=== PATIENT | female | born 1990 | race African-American/Black ===

== ENCOUNTER 2016-11-30 19:37 | Emergency (ER) | payer OTHER ==
[~2016-11-30] VITALS: Ht 160 cm; Wt 114.0 kg
[~2016-11-30 19:37] MED LIST: FAMO-18 PO
[2016-11-30 20:08] VITALS: Ht 160 cm; Wt 114.0 kg
[2016-11-30] MEDS ORDERED: AMOX1TAB10 PO (20:57)
[2016-11-30] MEDS ORDERED: IBUPROFEN 600 MG TAB PO ONE (21:00)
--- NOTE | 2016-11-30 22:11 | ERD ---
ER Documentation Chief Complaint Date/Time DATE: 11/30/16 TIME: 22:[address] since this morning HPI This pleasant 26-year-old diabetic female presenting with 24 hours of sore throat. Patient reports fever, chills, body aches, states that she feels like she has a golf ball in the back of her throat. She is able to swallow her own saliva, she is having no difficulty speaking. Patient states that she is around no small children, but she does go to the gym and ride public transportation. patient denies nausea vomiting, or antibiotic use in the last 3 months. ROS All systems reviewed and are negative except as per history of present illness. Medications Home Meds Active Scripts Amoxicillin/Potassium Clav (Amox-Clav 875-125 mg Tablet) 875-125 mg Tab, 1 TAB PO BID for 10 Days, #20 TAB Prov:GLEN,MELODY 11/30/16 Famotidine* (Pepcid*) 20 Mg Tablet, 20 MG PO BID for 4 Days, #30 TAB Prov:ELIECER MAYORGA PA-C 07/21/16 Allergies Allergies: Coded Allergies: No Known Allergy (Unverified , 07/21/16) PMhx/Soc History of Surgery: No Anesthesia Reaction: No Hx Neurological Disorder: No Hx Respiratory Disorders: No Hx Cardiac Disorders: No Hx Psychiatric Problems: No Hx Miscellaneous Medical Probl: No Hx Alcohol Use: No Hx Substance Use: No Hx Tobacco Use: No Physical Exam Vitals Vital Signs Date Time Temp Pulse Resp B/P Pulse Ox O2 Delivery O2 Flow Rate FiO2 11/30/16 22:19 99.0 11/30/16 20:08 98.0 97 20 144/72 97 Vital stable, nursing notes reviewed Physical Exam Const: No acute distress Head: Atraumatic Eyes: Normal Conjunctiva, PERRLA, EOMI ENT: Panic membranes are erythemic, nonbulging, auditory canals are clear, nasal mucosa is moist, clear mucus noted terminates +2, no maxillary or frontal sinus tenderness, pharynx is pink, moist, tonsils +2 with exudate noted tonsillar pillars, and posterior pharynx, uvula rises and falls with pronation Neck: Full range of motion..~ No meningismus. No cervical chain nodes palpable Resp: Chest rise and fall symmetrically, clear to auscultation bilaterally no rales wheezes or rhonchi Cardio: Regular rate and rhythm, no murmurs Abd: Soft, non tender, non distended. No hepatosplenomegaly Skin: No petechiae or rashes Back: Ext: Neur: Awake and alert Psych: Normal Mood and Affect Results 24 hrs Current Medications Medications (Trade) Dose Ordered Sig/Fransisco Route PRN Reason Start Time Stop Time Status Last Admin Dose Admin Ibuprofen (Motrin) 600 mg ONCE ONCE PO 11/30/16 21:00 11/30/16 21:01 DC 11/30/16 21:03 Procedures/MDM Pleasant 26-year-old diabetic female presents to emergency department with sore throat for less than 24 hours. Physical exam findings consistent with strep pharyngitis. Patient's voice is clear, and tonsillar abscess is not suspected. Patient will be treated with Augmentin, I feel the patient is stable for discharge at this time. I have discussed results, examination findings, the treatment plan with the patient and family present prior to discharge. Indications for emergent reevaluation, side effects of medication were also discussed. All questions were answered. Patient verbalizes understanding and agrees with plan of care. Departure Diagnosis: Primary Impression: Acute tonsillitis Pharyngitis/tonsillitis etiology: unspecified etiology Qualified Code: J03.90 - Acute tonsillitis, unspecified etiology Condition: Good Patient Instructions: Pharyngitis, Strep (Presumed) Additional Instructions: Thank you for for coming to [facility] for your care today. Please ask your nurse or provider if you have questions about your care today and do not leave until all your questions have been answered. Please use any medications given as directed and follow-up with your doctor (or the doctor you were referred to) in the next 2-3 days. If you do not have a primary care doctor you may follow up at the [facility] (listed below). You may also use motrin and tylenol as needed for fever and/or pain unless instructed otherwise by your provider or nurse. Indications for more urgent follow-up have been discussed, but you may return to the Emergency Department at ANY time for any worrisome or worsening symptoms. If you have abdominal pain, please know that no test or exam you received is perfect and you should follow up within 8 hours for continued pain. If you had any imaging studies today, such as an X-Ray or CT Scan, these studies will be reviewed later by a radiologist. You will be called if there are important findings that were not identified today, so make sure the contact information you provided at registration is correct. If you received any narcotic pain control medicine today, such as Vicodin, Morphine or Dilaudid, your coordination and judgment may be affected for a number of hours. Please do not drive or operate heavy machinery, and you may want someone to assist you at home. If you were given a prescription for narcotic medication, be aware that it is very addictive- use sparingly and only if necessary. ENRIQUE CARROLL Nov 30, 2016 22:11
[2016-11-30 22:19] VITALS: TEMP 99
== END 2016-11-30 22:19 | disposition home or self-care (01) ==
LOC: FTE 19:37
DX: J03.90 Acute tonsillitis, unspecified (principal); E03.9 Hypothyroidism, unspecified; E11.9 Type 2 diabetes mellitus without complications
CPT/HCPCS: 99283

== ENCOUNTER 2017-03-27 08:37 | Emergency (ER) | payer OTHER ==
[~2017-03-27] VITALS: Ht 162.6 cm; Wt 116.0 kg
[~2017-03-27 08:37] MED LIST changes: +AMOX1TAB10 PO; -FAMO-18 PO; +FAMO-96 PO
[2017-03-27 08:42] VITALS: Ht 162.6 cm; Wt 116.0 kg
[2017-03-27] MEDS ORDERED: ONDANSETRON (ODT) 4 MG TAB ODT STA (09:11)
[2017-03-27] MEDS ORDERED: FAMOTIDINE 20 MG TAB PO STA (09:11)
[2017-03-27 09:35] LABS: URINE BLOOD (Dip) POC 1+ (NEGATIVE)
[2017-03-27 09:51] LABS: BASOPHIL # 0.1 10^3/ul (0.0-0.1); BASOPHILS % 1.2 % (0.0-2.0); EOSINOPHILS # 0.1 10^3/ul (0.0-0.5); HEMATOCRIT 38.4 % (37.0-47.0); HEMOGLOBIN 12.5 g/dl (12.0-16.0); LYMPHOCYTES # 2.5 10^3/ul (0.8-2.9); MEAN CORPUSCULAR HEMOGLOBIN 26.8 pg (29.0-33.0); MEAN CORPUSCULAR HGB CONC 32.6 g/dl (32.0-37.0); MEAN CORPUSCULAR VOLUME 82.4 fl (82.0-101.0); MEAN PLATELET VOLUME 9.3 fl (7.4-10.4); MONOCYTE # 0.8 10^3/ul (0.3-0.9); NEUTROPHIL # 1.4 10^3/ul (1.6-7.5); PLATELET COUNT 351 10^3/UL (140-415); RED BLOOD COUNT 4.66 10^6/ul (4.20-5.40); RED CELL DISTRIBUTION WIDTH 13.6 % (11.5-14.5); WHITE BLOOD COUNT 4.9 10^3/ul (4.8-10.8)
[2017-03-27 09:57] LABS: MONOCYTES % 16.6 % (0.0-11.0); POSITIVE DIFF @See below
[2017-03-27 10:11] LABS: ALBUMIN 4.4 g/dl (3.3-4.9); ALBUMIN/GLOBULIN RATIO 0.93; BILIRUBIN,INDIRECT 0.1 mg/dl (0-1.1); BILIRUBIN,TOTAL 0.1 mg/dl (0.2-1.3); CALCIUM 10.1 mg/dl (8.4-10.2); CREATININE 0.75 mg/dl (0.44-1.00); POTASSIUM 4.1 mmol/L (3.5-5.1); TOTAL PROTEIN 9.1 g/dl (6.1-8.1)
--- NOTE | 2017-03-27 10:29 | RADRPT ---
PROCEDURE: US Pelvis. CLINICAL INDICATION: pelvic pain TECHNIQUE: Multiple sonographic images of the pelvis were obtained utilizing a transabdominal and endovaginal technique. The images were reviewed on a PACS workstation. COMPARISON: None. FINDINGS: The uterus is normal in size with a normal appearance of the myometrium. The uterus measures 8.5 x 4.0 x 4.3 cm. The endometrial stripe is homogeneous in appearance and has the thickness of 5 mm. The right ovary was not seen. The left ovary measures 1.4 x 0.8 x 1.1 cm. Trace free fluid is present within the pelvis. RPTAT: AA IMPRESSION: Unremarkable pelvic ultrasound. Right ovary not visualized. .Cruzito Galvan MD, MD Date Time Electronically viewed and signed by .Cruzito Galvan MD, MD on 03/27/2017 10:29 .S/
--- NOTE | 2017-03-27 10:30 | ERD ---
ER Documentation Chief Complaint Date/Time DATE: 03/27/17 TIME: 10:25 Chief Complaint right lower abdominal pain, lower back pain and nausea x 2 weeks HPI This is a 26-year-old female, with past medical history for diabetes mellitus type 2, hypercholesterolemia and hypertension, presenting to emergency department with right lower quadrant abdominal pain and right lower back pain with nausea 2 weeks. Patient states she will develop sharp right lower quadrant abdominal pain that radiates to right lower back and pain lasts for about 10-15 minutes per day. Patient states pain resolves on its own. Patient did take Tylenol once with some relief of pain. Patient also has nausea with some acid reflux. Denies dysuria, hematuria, urinary frequency or urinary urgency. No fevers or chills. Last menstrual period April 2016 and patient states she is on medication Cyclafem. Patient states she was told to continue this medication daily so that she would not have a menstrual period. ROS All systems reviewed and are negative except as per history of present illness. Medications Home Meds Active Scripts Docusate Sodium* (Colace*) 100 Mg Capsule, 100 MG PO DAILY, #15 CAP Prov:KASSI RED NP 03/27/17 Polyethylene Glycol* (Miralax*) 17 Gm Powd.pack, 17 GM PO DAILY, #7 Prov:KASSI RED NP 03/27/17 Amoxicillin/Potassium Clav (Amox-Clav 875-125 mg Tablet) 875-125 mg Tab, 1 TAB PO BID for 10 Days, #20 TAB Prov:GLENENRIQUE 11/30/16 Famotidine* (Pepcid*) 20 Mg Tablet, 20 MG PO BID for 4 Days, #30 TAB Prov:ELIECER MAYORGA PA-C 07/21/16 Allergies Allergies: Coded Allergies: benazepril (Verified Allergy, Intermediate, 03/27/17) PMhx/Soc Diabetes mellitus type 2 Hypertension Hypercholesterolemia History of Surgery: No Anesthesia Reaction: No Hx Neurological Disorder: No Hx Respiratory Disorders: No Hx Psychiatric Problems: No Hx Miscellaneous Medical Probl: Yes Hx Alcohol Use: No Hx Substance Use: No Hx Tobacco Use: No Smoking Status: Never smoker Physical Exam Vitals Vital Signs Date Time Temp Pulse Resp B/P Pulse Ox O2 Delivery O2 Flow Rate FiO2 03/27/17 08:42 98.3 114 18 139/106 98 Physical Exam Const: Alert, [id number] Head: Atraumatic Eyes: Normal Conjunctiva ENT: Normal External Ears, Nose and Mouth. Neck: Full range of motion..~ No meningismus. Resp: Clear to auscultation bilaterally. No wheezing, rhonchi or crackles per Cardio: Regular rate and rhythm, no murmurs Abd: Soft, non distended. Normal bowel sounds, mild tenderness right lower quadrant. No rebound tenderness. Negative Devlin sign Skin: No petechiae or rashes Back: No midline or flank tenderness Ext: No cyanosis, or edema Neur: Awake and alert Psych: Normal Mood and Affect Result Diagram: 03/27/1793303/27/1734 Results 24 hrs Laboratory Tests Test 03/27/17 09:34 03/27/17 09:40 White Blood Count 4.910^3/ul Red Blood Count 4.6610^6/ul Hemoglobin 12.5g/dl Hematocrit 38.4% Mean Corpuscular Volume 82.4fl Mean Corpuscular Hemoglobin 26.8pg Mean Corpuscular Hemoglobin Concent 32.6g/dl Red Cell Distribution Width 13.6% Platelet Count 18761^3/UL Mean Platelet Volume 9.3fl Neutrophils % 29.0% Lymphocytes % 51.0% Monocytes % 16.6% Eosinophils % 2.0% Basophils % 1.2% Nucleated Red Blood Cells % 0.0/100WBC Neutrophils # 1.410^3/ul Lymphocytes # 2.510^3/ul Monocytes # 0.810^3/ul Eosinophils # 0.110^3/ul Basophils # 0.110^3/ul Nucleated Red Blood Cells # 0.010^3/ul Sodium Level 142mmol/L Potassium Level 4.1mmol/L Chloride Level 99mmol/L Carbon Dioxide Level 24mmol/L Anion Gap 23 Blood Urea Nitrogen 9mg/dl Creatinine 0.75mg/dl Glucose Level 143mg/dl Calcium Level 10.1mg/dl Total Bilirubin 0.1mg/dl Direct Bilirubin 0.00mg/dl Indirect Bilirubin 0.1mg/dl Aspartate Amino Transf (AST/SGOT) 14IU/L Alanine Aminotransferase (ALT/SGPT) 17IU/L Alkaline Phosphatase 85IU/L Total Protein 9.1g/dl Albumin 4.4g/dl Globulin 4.70g/dl Albumin/Globulin Ratio 0.93 Lipase 63U/L Bedside Urine pH (LAB) 6.0 Bedside Urine Protein (LAB) 1+ Bedside Urine Glucose (UA) Negative Bedside Urine Ketones (LAB) Negative Bedside Urine Blood 1+ Bedside Urine Nitrite (LAB) Negative Bedside Urine Leukocyte Esterase (L Negative Current Medications Medications (Trade) Dose Ordered Sig/Fransisco Route PRN Reason Start Time Stop Time Status Last Admin Dose Admin Famotidine (Pepcid) 20 mg ONCE STAT PO 03/27/17 09:11 03/27/17 09:13 DC 03/27/17 09:28 Ondansetron HCl (Zofran Odt) 4 mg ONCE STAT ODT 03/27/17 09:11 03/27/17 09:13 DC 03/27/17 09:28 Procedures/MDM [place] [address] Radiology Main Line: [phone] DIAGNOSTIC IMAGING REPORT Patient: CHAYITO SAGASTUME : 1990 Age: 26 Sex: F MR #: [id number] DOS: 03/27/17 0911 Ordering MD: KASSI RED NP Location: [facility] Room/Bed: PROCEDURE: US Pelvis. CLINICAL INDICATION: pelvic pain TECHNIQUE: Multiple sonographic images of the pelvis were obtained utilizing a transabdominal and endovaginal technique. The images were reviewed on a PACS workstation. COMPARISON: None. FINDINGS: The uterus is normal in size with a normal appearance of the myometrium. The uterus measures 8.5 x 4.0 x 4.3 cm. The endometrial stripe is homogeneous in appearance and has the thickness of 5 mm. The right ovary was not seen. The left ovary measures 1.4 x 0.8 x 1.1 cm. Trace free fluid is present within the pelvis. RPTAT: AA IMPRESSION: Unremarkable pelvic ultrasound. Right ovary not visualized. [place] [address] Radiology Main Line: [phone] DIAGNOSTIC IMAGING REPORT Patient: CHAYITO SAGASTUME : 1990 Age: 26 Sex: F MR #: [id number] DOS: 03/27/17 0911 Ordering MD: KASSI RED NP Location: [facility] Room/Bed: PROCEDURE: CT abdomen and pelvis without contrast and with 3-D reconstructions CLINICAL INDICATION: Abdominal Pain, nausea, constipation, frequent urination TECHNIQUE: CT scan of the abdomen and pelvis without contrast was performed on a multislice CT scanner. 3-D sagittal and coronal reformatted images were obtained from the axial source images. DLP 1440.23 mGycm CTDIvol 22.91 mGy One or more of the following dose reduction techniques were used: - Automated exposure control. - Adjustment of the mA and/or kV according to patient size. - Use of iterative reconstruction technique. COMPARISON: None. FINDINGS: The visualized lung bases are unremarkable. The liver is homogenous in attenuation. There are no focal liver lesions. There is no intrahepatic or extrahepatic biliary ductal dilatation. The gallbladder is within normal limits. The spleen, pancreas, and adrenal glands are within normal limits. The kidneys are symmetric and without focal lesions. There are no renal calculi. There is no obstructive uropathy. There are no dilated or thickened loops of bowel. The appendix is within normal limits. A zlqrwcso-wr-ykhcr amount of stool is noted in the cecum which is located in the posterior aspect of the pelvis. The aorta is within normal limits. There are no enlarged mesenteric, periaortic , or retroperitoneal lymph nodes. The bladder is within normal limits. There is no free air. There is no free fluid. There are no enlarged intrapelvic or inguinal lymph nodes. Osseous and soft tissue structures are unremarkable. IMPRESSION: Unremarkable CT scan of the abdomen and pelvis. The appendix is within normal limits. No renal/ureteral calculi or hydronephrosis. No evidence of a bowel obstruction. A jopekwsp-vg-kfsgr amount of stool is noted in the cecum which is located in the posterior aspect of the pelvis. The clinical significance of this finding is unclear and may be related to the reported constipation. Clinical correlation is recommended. MDM: This is a 26-year-old female presenting to emergency department with history of sharp right lower quadrant abdominal pain that radiates to right lower back and nausea for the past 2 weeks. Patient denies vomiting however states she has acid reflux. No dysuria, hematuria, urinary frequency or urinary urgency. Patient states she is currently nauseous. No active vomiting in the ED. Patient given Pepcid and Zofran p.o. Labs are unremarkable. No significant anemia, infection or electrolyte imbalance. Urine dip is negative for infection. Urine is negative. US pelvis reviewed by radiologist as normal. CT abdomen and pelvis reviewed by radiologist as moderate to large amount of stool noted in cecum. Appendix normal. No renal/ureteral calculi or hydronephrosis. No evidence of bowel obstruction. Differential diagnosis includes but not limited to acute appendicitis, diverticulitis, diverticulosis, bowel obstruction, constipation, infectious colitis, irritable bowel syndrome, inflammatory bowel disease, viral gastroenteritis, abdominal aortic aneurysm, food intolerance, celiac disease, UTI, pyelonephritis, nephrolithiasis, acute urinary retention or colorectal cancer. I doubt any emergent conditions such as appendicitis, diverticulitis, bowel obstruction, abdominal aortic aneurysm at this time due to normal vital signs and normal lab results. Patient is appropriate for outpatient management. Patient given prescriptions for miralax and Colace. Instructed patient to follow-up with primary care provider in the next 2-3 days for reassessment and additional management. Return to ED for any high fever, chest pain, difficulty breathing, shortness breath, wheezing, vomiting, diarrhea, abdominal pain or any new or worsening symptoms. Patient verbalizes understanding. All questions answered at discharge. Departure Diagnosis: Primary Impression: Abdominal pain Abdominal location: right lower quadrant Qualified Code: R10.31 - Right lower quadrant abdominal pain Additional Impression: Constipation Constipation type: unspecified constipation type Qualified Code: K59.00 - Constipation, unspecified constipation type Condition: KASSI Gates NP Mar 27, 2017 10:30
--- NOTE | 2017-03-27 10:37 | RADRPT ---
PROCEDURE: CT abdomen and pelvis without contrast and with 3-D reconstructions CLINICAL INDICATION: Abdominal Pain, nausea, constipation, frequent urination TECHNIQUE: CT scan of the abdomen and pelvis without contrast was performed on a multislice CT [facility]. 3-D sagittal and coronal reformatted images were obtained from the axial source images. DLP 1440.23 mGycm CTDIvol 22.91 mGy One or more of the following dose reduction techniques were used: - Automated exposure control. - Adjustment of the mA and/or kV according to patient size. - Use of iterative reconstruction technique. COMPARISON: None. FINDINGS: The visualized lung bases are unremarkable. The liver is homogenous in attenuation. There are no focal liver lesions. There is no intrahepatic or extrahepatic biliary ductal dilatation. The gallbladder is within normal limits. The spleen, pancreas, and adrenal glands are within normal limits. The kidneys are symmetric and without focal lesions. There are no renal calculi. There is no obstruc tive uropathy. There are no dilated or thickened loops of bowel. The appendix is within normal limits. A moderate-t o-large amount of stool is noted in the cecum which is located in the posterior aspect of the pelvis . The aorta is within normal limits. There are no enlarged mesenteric, periaortic, or retroperitoneal lymph nodes. The bladder is within normal limits. There is no free air. There is no free fluid. There are no enlarged intrapelvic or inguinal lymph nodes. Osseous and soft tissue structures are unremarkable. IMPRESSION: Unremarkable CT scan of the abdomen and pelvis. The appendix is within normal limits. No renal/ureteral calculi or hydronephrosis. No evidence of a bowel obstruction. A krjhhgsg-dd-ufhxw amount of stool is noted in the cecum which is located in the posterior aspect o f the pelvis. The clinical significance of this finding is unclear and may be related to the reporte d constipation. Clinical correlation is recommended. RPTAT: EE Physician Husam Date Time Electronically viewed and signed by Gorge Potter Physician on 03/27/2017 10:36 /
[2017-03-27] MEDS ORDERED: DOCU-144 PO (10:44)
[2017-03-27] MEDS ORDERED: POLY17PO6 PO (10:44)
[2017-03-31 16:11] LABS: URINE BLOOD (Dip) POC 1+ (NEGATIVE)
== END 2017-03-27 10:57 | disposition home or self-care (01) ==
LOC: FTE 08:37
DX: R10.31 Right lower quadrant pain (principal); K59.00 Constipation, unspecified; E11.9 Type 2 diabetes mellitus without complications; R11.0 Nausea; I10 Essential (primary) hypertension; R10.2 Pelvic and perineal pain
CPT/HCPCS: 36415; 74176; 76830; 76856; 80053; 81003; 83690; 85025; Z7502

== ENCOUNTER 2017-12-24 20:55 | Emergency (ER) | END 2017-12-25 01:00 | disposition left against medical advice (07) ==

== ENCOUNTER 2017-12-31 16:56 | Emergency (ER) | END 2017-12-31 19:27 | disposition home or self-care (01) ==

== ENCOUNTER 2018-03-31 16:24 | Emergency (ER) | END 2018-03-31 19:00 | disposition home or self-care (01) ==

== ENCOUNTER → 2018-11-01 | Emergency (ER) | payer OTHER ==
[~2018-11-01] VITALS: Ht 162.6 cm; Wt 110.0 kg
[~2018-11-01] MED LIST changes: +ACET500C5 PO; -AMOX1TAB10 PO; +ATOR10TA65 PO; +BEN50 PO; -FAMO-96 PO; +FLUCONAZOLE 150 MG TAB PO ONE; +HYDR-4011 PO; +IBUP800T48 PO; +LAMO25TA PO; +LOSA50TA14 PO; +LURA20TA PO; +METF500T24 PO; +NAPR-985 PO; +NYST1000 PO
[2018-11-01 08:13] VITALS: BP 163/72; PULSE 84; RESP 16; Ht 162.6 cm; Wt 110.0 kg
--- NOTE | 2018-11-01 10:47 | ERD ---
ER Documentation Chief Complaint Chief Complaint pt bib self with c/o sore throat since Sunday, white spots HPI 28-year-old female presenting with sore throat times 5 days. She noted some white spots on her throat. She was seen at urgent care and had a strep swab performed which was negative but given antibiotics. Symptoms have not resolved. Patient has no fevers. Denies runny nose and denies cough. Has some mild ear congestion. Medical history of diabetes type 2. Checked his sugar yesterday was 180. Patient is on pills but no insulin. Patient's allergy to benazepril. Surgical history denies. Social history smokes marijuana occasionally ROS All systems reviewed and are negative except as per history of present illness. Medications Home Meds Active Scripts Nystatin (Nystatin) 100,000 Unit/1 Ml Oral.susp, 5 ML PO QID for 14 Days, OZ Swish and swallow Prov:NATHANAEL ZHU PA-C 11/01/18 Naproxen* (Naprosyn*) 500 Mg Tablet, 500 MG PO BID PRN for PAIN AND/OR INFLAMMATION, #30 TAB Prov:KIERSTEN XIONG PA-C 03/31/18 Hydrocodone/Acetaminophen ([place] 5-325 Tablet) 1 Each Tablet, 1 TAB PO Q6H PRN for PAIN, #5 TAB Prov:KIERSTEN XIONG PA-C 03/31/18 Acetaminophen* (Tylophen*) 500 Mg Capsule, 1 CAP PO Q6H PRN for PAIN AND OR ELEVATED TEMP, #20 CAP Prov:NIMCO MARY F 12/31/17 Ibuprofen* (Motrin*) 800 Mg Tab, 800 MG PO Q6H PRN for PAIN AND OR ELEVATED TEMP, #20 TAB Prov:PASILARAFA BARBAAR F 12/31/17 Reported Medications Diphenhydramine Hcl* (Benadryl*) 50 Mg Cap, 50 MG PO QHS PRN for ITCHING, CAP 05/22/17 Lamotrigine* (Lamotrigine*) 25 Mg Tablet, 50 MG PO QAM, TAB 05/22/17 Lurasidone Hcl (LATUDA) 20 Mg Tablet, 20 MG PO DAILY, #30 TAB 05/22/17 Losartan Potassium* (Losartan Potassium*) 50 Mg Tablet, 50 MG PO DAILY, TAB 05/22/17 Atorvastatin Calcium (Atorvastatin Calcium) 10 Mg Tablet, 10 MG PO QHS, #30 TAB 05/22/17 Metformin Hcl* (Metformin Hcl*) 500 Mg Tablet, 500 MG PO WITH BREAKFAST DINNE, #60 TAB 05/22/17 Allergies Allergies: Coded Allergies: benazepril (Verified Allergy, Intermediate, 12/31/17) PMhx/Soc History of Surgery: No Anesthesia Reaction: No Hx Neurological Disorder: No Hx Respiratory Disorders: No Hx Cardiac Disorders: No Hx Psychiatric Problems: No Hx Miscellaneous Medical Probl: Yes (DM II) Hx Alcohol Use: No Hx Substance Use: Yes (canabis) Hx Tobacco Use: No Smoking Status: Never smoker FmHx Family History: No diabetes, No coronary disease, No other Physical Exam Vitals Vital Signs Date Temp Pulse Resp B/P (MAP) Pulse Ox O2 O2 Flow FiO2 Time Delivery Rate 11/01/18 97.5 84 16 163/72 98 08:13 (102) Physical Exam GENERAL: The patient is well-appearing, well-nourished, in no acute distress HEENT: Atraumatic. Conjunctivae are pink. Pupils equal, round, and reactive to light. There is no scleral icterus. Tympanic membranes clear bilaterally. Oropharynx erythematous with small white spots noted on the posterior oropharynx and uvula.. No nystagmus or photophobia. NECK: C-spine is soft and supple. There is no meningismus. There is no cervical lymphadenopathy. CHEST: Clear to auscultation bilaterally. There are no rales, wheezes or rhonchi. HEART: Regular rate and rhythm. No murmurs, clicks, rubs or gallops. Results 24 hrs Current Medications Medications Dose Sig/Fransisco Start Time Status Last (Trade) Ordered Route PRN Stop Time Admin Dose Reason Admin Fluconazole 150 mg ONCE ONCE 11/01/18 DC 11/01/18 (Diflucan) PO 09:00 11/01/18 08:46 09:01 Procedures/MDM ER course: Diflucan given ED. MDM: 28-year-old female presenting with sore throat. Patient has findings consistent with thrush. Patient be discharged with supportive medications. I have low suspicion for bacterial infection. Patient is discharged and told to follow-up with primary care. All questions answered at discharge Departure Diagnosis: Primary Impression: Thrush Condition: Stable Patient Instructions: Oral Thrush Additional Instructions: FOLLOW UP WITH YOUR PRIMARY CARE PHYSICIAN TOMORROW.Return to this facility if you are not improving as expected. NATHANAEL ZHU PA-C Nov 01, 2018 10:47
== END | disposition home or self-care (01) ==
LOC: FTE 08:12
DX: B37.9 Candidiasis, unspecified (principal); E11.9 Type 2 diabetes mellitus without complications; Z79.84 Long term (current) use of oral hypoglycemic drugs
CPT/HCPCS: 99283